=== PATIENT | female | born 1940 | race Caucasian/White ===

== ENCOUNTER 2017-02-18 10:03 | Emergency (ER) | payer MEDICARE ==
[2017-02-18 10:39] LABS: BASOPHILS 0.2 % (0-2); EOSINOPHILS 0.2 % (0-7); HEMATOCRIT 43.5 % (36.0-48.0); HEMOGLOBIN 14.5 g/dL (12-16); IMMATURE GRANULOCYTES 0.2 % (0-5); LYMPHOCYTES 12.8 % (15-50); MCH 29.6 pg (26.0-34.0); MCHC 33.3 g/dL (31.0-37.0); MCV 88.8 fL (80.0-100.0); MONOCYTES 4.7 % (2-11); NEUTROPHILS 81.9 % (40-80); PLATELET COUNT 276 10x3/uL (130-400); RDW 13.7 % (11.5-14.5); WBC 12.6 10x3/uL (4.8-10.8)
[2017-02-18 11:00] LABS: ALBUMIN 4.1 g/dL (3.4-5.0); ALKALINE PHOSPHATASE 104 U/L (46-116); ALT (SGPT) 23 U/L (10-68); BILIRUBIN - TOTAL 2.13 mg/dL (0.2-1.3); CALC OSMOLALITY 273 mosm/kg (275-300); CALCIUM 9.3 mg/dL (8.5-10.1); CARBON DIOXIDE 28.2 mmol/L (21.0-32.0); CHLORIDE - SERUM 100 mmol/L (98-107); CREATININE - SERUM 0.9 mg/dL (0.6-1.3); GLUCOSE 138 mg/dL (74-106); POTASSIUM - SERUM 3.7 mmol/L (3.5-5.1); PROTEIN - SERUM 8.3 g/dL (6.4-8.2); SODIUM 136 mmol/L (136-145); UREA NITROGEN 13 mg/dL (7-18); eGFR NON AFRICAN AMERICAN 65 mL/min (90-120)
[2017-02-18 11:03] LABS: CREATINE KINASE 65 UL (21-215); PRO BNP 823 pg/mL (0-450)
[2017-02-18 11:04] LABS: TROPONIN-I < 0.017 ng/mL (0.000-0.060)
== END 2017-02-18 13:05 | disposition home or self-care (01) ==
LOC: D.ER 10:03
PROVIDERS: Emergency Medicine
DX: I10 Essential (primary) hypertension (principal); I50.9 Heart failure, unspecified; I48.91 Unspecified atrial fibrillation